=== PATIENT | female | born 2000 | race Hispanic/Latino ===

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

== ENCOUNTER 2020-02-13 07:53 | Outpatient (CLI) | payer BC ==
[2020-02-13 08:14] LABS: Hematocrit 40.3 % (30.3-42.9); Hemoglobin 13.8 gm/dl (10.1-14.3); Mean Corpuscular HGB Conc 34 % (30-34); Mean Corpuscular Volume 84 fl (79-97); Platelet Count 268 K/mm3 (140-440); Red Blood Count 4.82 M/mm3 (3.65-5.03); Red Cell Distribution Width 14.1 % (13.2-15.2)
[2020-02-13 08:49] LABS: Alanine Aminotransferase 21 units/L (7-56); Albumin 4.5 g/dL (3.9-5); Blood Urea Nitrogen 11 mg/dL (7-17); Calcium 9.5 mg/dL (8.4-10.2); Hemolysis Index 8
[2020-02-13 08:59] LABS: BUN/Creatinine Ratio 18
== END 2020-02-13 07:54 | disposition home or self-care (01) ==
LOC: LAB 07:53
PROVIDERS: ATTEND Obstetrics & Gynecology
DX: Z13.29 Encounter for screening for other suspected endocrine disorder (principal); Z13.0 Encounter for screening for diseases of the blood and blood-forming organs and certain disorders involving the immune mechanism; N91.5 Oligomenorrhea, unspecified
CPT/HCPCS: 36415; 80053; 84146; 84443; 85027

== ENCOUNTER 2020-03-15 11:14 | Outpatient (CLI) | payer BC ==
[2020-03-15 11:39] LABS: Basophils # (Auto) 0.1 K/mm3 (0.0-0.1); Basophils % (Auto) 0.8 % (0.0-1.8); Eosinophils # (Auto) 0.1 K/mm3 (0.0-0.4); Eosinophils % (Auto) 1.3 % (0.0-4.3); Hematocrit 41.9 % (30.3-42.9); Hemoglobin 14.1 gm/dl (10.1-14.3); Lymphocytes # (Auto) 2.3 K/mm3 (1.2-5.4); Lymphocytes % (Auto) 28.1 % (13.4-35.0); Mean Corpuscular HGB Conc 34 % (30-34); Mean Corpuscular Volume 84 fl (79-97); Monocytes # (Auto) 0.5 K/mm3 (0.0-0.8); Monocytes % (Auto) 5.5 % (0.0-7.3); Platelet Count 278 K/mm3 (140-440); Red Blood Count 4.99 M/mm3 (3.65-5.03); Red Cell Distribution Width 14.1 % (13.2-15.2)
[2020-03-15 12:06] LABS: Alanine Aminotransferase 17 units/L (7-56); Albumin 4.7 g/dL (3.9-5); Blood Urea Nitrogen 9 mg/dL (7-17); Calcium 9.5 mg/dL (8.4-10.2); Hemolysis Index 4
[2020-03-15 12:07] LABS: BUN/Creatinine Ratio 15
[2020-03-18 13:20] LABS: Vitamin D, 25-OH, D2 <4 ng/mL
== END 2020-03-15 11:15 | disposition home or self-care (01) ==
LOC: LAB 11:14
PROVIDERS: ATTEND Internal Medicine
DX: Z13.818 Encounter for screening for other digestive system disorders (principal); Z13.29 Encounter for screening for other suspected endocrine disorder; R68.89 Other general symptoms and signs; D51.9 Vitamin B12 deficiency anemia, unspecified; E55.9 Vitamin D deficiency, unspecified; R94.6 Abnormal results of thyroid function studies
CPT/HCPCS: 36415; 80053; 82306; 82607; 82747; 85025; 86706; 86787

== ENCOUNTER 2020-03-21 11:23 | Outpatient (CLI) | payer BC | END 2020-03-21 11:24 | disposition home or self-care (01) | LOC: LAB 11:23 | PROVIDERS: ATTEND Internal Medicine | DX: Z11.59 Encounter for screening for other viral diseases (principal) | CPT/HCPCS: 36415; 86706 ==

== ENCOUNTER 2021-04-03 11:39 | Outpatient (CLI) | payer BC ==
[2021-04-03 12:28] LABS: Alanine Aminotransferase 11 units/L (7-56); Albumin 4.4 g/dL (3.9-5); Blood Urea Nitrogen 10 mg/dL (7-17); Calcium 9.2 mg/dL (8.4-10.2); Chol/HDL Ratio 3.72 %; HDL Cholesterol 47 mg/dL (40-59); Hemolysis Index 6; LDL Cholesterol,Direct 108 mg/dL (50-130)
[2021-04-03 12:46] LABS: BUN/Creatinine Ratio 17
[2021-04-03 12:50] LABS: Basophils # (Auto) 0.1 K/mm3 (0.0-0.1); Basophils % (Auto) 0.7 % (0.0-1.8); Eosinophils # (Auto) 0.1 K/mm3 (0.0-0.4); Eosinophils % (Auto) 0.9 % (0.0-4.3); Hematocrit 41.9 % (30.3-42.9); Hemoglobin 13.5 gm/dl (10.1-14.3); Lymphocytes # (Auto) 1.9 K/mm3 (1.2-5.4); Mean Corpuscular HGB Conc 32 % (30-34); Mean Corpuscular Volume 86 fl (79-97); Monocytes # (Auto) 0.4 K/mm3 (0.0-0.8); Monocytes % (Auto) 5.4 % (0.0-7.3); Platelet Count 269 K/mm3 (140-440); Red Blood Count 4.86 M/mm3 (3.65-5.03); Red Cell Distribution Width 13.9 % (13.2-15.2)
== END 2021-04-03 11:40 | disposition home or self-care (01) ==
LOC: LAB 11:39
PROVIDERS: ATTEND Internal Medicine
DX: Z00.00 Encounter for general adult medical examination without abnormal findings (principal); Z13.220 Encounter for screening for lipoid disorders; Z13.29 Encounter for screening for other suspected endocrine disorder; Z13.1 Encounter for screening for diabetes mellitus
CPT/HCPCS: 36415; 80053; 80061; 82306; 84443; 85025

== ENCOUNTER 2021-08-21 17:41 | Emergency (ER) | payer BC ==
--- NOTE | 2021-08-21 20:50 | XRay Report ---
CHEST 2 VIEWS INDICATION / CLINICAL INFORMATION: CHEST PAIN. FINDINGS: SUPPORT DEVICES: None. HEART / MEDIASTINUM: No significant abnormality. LUNGS / PLEURA: No significant pulmonary or pleural abnormality. No pneumothorax. ADDITIONAL FINDINGS: No significant additional findings. IMPRESSION: 1. No acute findings. Signer Name: Jorge Johnson MD Signed: 08/21/2021 8:45 PM Workstation Name: [id number]
[2021-08-21] MEDS ORDERED: IBUPROFEN 800 MG TAB PO ONE (22:27)
[2021-08-21] MEDS ORDERED: ONDANSETRON 4 MG ODT TAB PO ONE (22:27)
[2021-08-21 23:00] LABS: Basophils # (Auto) 0.1 K/mm3 (0.0-0.1); Basophils % (Auto) 0.6 % (0.0-1.8); Eosinophils # (Auto) 0.1 K/mm3 (0.0-0.4); Eosinophils % (Auto) 1.3 % (0.0-4.3); Hematocrit 42.3 % (30.3-42.9); Hemoglobin 13.9 gm/dl (10.1-14.3); Lymphocytes # (Auto) 3.9 K/mm3 (1.2-5.4); Lymphocytes % (Auto) 35.4 % (13.4-35.0); Mean Corpuscular HGB Conc 33 % (30-34); Mean Corpuscular Volume 85 fl (79-97); Monocytes # (Auto) 0.8 K/mm3 (0.0-0.8); Monocytes % (Auto) 7.1 % (0.0-7.3); Platelet Count 274 K/mm3 (140-440); Red Blood Count 4.99 M/mm3 (3.65-5.03); Red Cell Distribution Width 13.9 % (13.2-15.2)
[2021-08-21 23:18] LABS: Alanine Aminotransferase 12 units/L (7-56); Blood Urea Nitrogen 9 mg/dL (7-17); Calcium 9.8 mg/dL (8.4-10.2); Hemolysis Index 3
[2021-08-21 23:34] LABS: BUN/Creatinine Ratio 13
--- NOTE | 2021-08-21 23:36 | Emergency Department Report ---
ED Chest Pain HPI - General Chief Complaint: Chest Pain Stated Complaint: CHEST/BACK PAIN /DIZZY Time Seen by Provider: 08/21/21 22:26 Source: patient Mode of arrival: Ambulatory Limitations: No Limitations - History of Present Illness Initial Comments: Patient is a 21 female who presents for substernal chest pain rating the left arm since yesterday. Pain is rated at 5/10 achy sharp. Patient denies nausea or vomiting. There is no dizziness or lightheadedness. Has been no fever or chills. Patient denies cough or shortness of breath. Last menstrual cycle 2 weeks ago. Patient states family history of coronary artery disease paternal and maternal. MD Complaint: chest pain Severity scale (0 -10): 7 - Related Data Home Medications Medication Instructions Recorded Confirmed Last Taken Acetaminophen [Tylenol] 650 mg PO Q6HR PRN 08/20/16 08/20/16 08/20/16 04:00 Previous Rx's Medication Instructions Recorded Last Taken Type Nitrofurantoin [place]/M-Cryst 100 mg PO Q12HR #10 capsule 08/20/16 Unknown Rx [Macrobid CAP] bisacodyL [Dulcolax] 5 mg PO DAILY PRN #30 tab 08/20/16 Unknown Rx traMADoL [Ultram] 50 mg PO Q6HR PRN #20 tablet 08/20/16 Unknown Rx Ibuprofen [Motrin 800 MG tab] 800 mg PO Q8HR PRN #30 tablet 08/22/21 Unknown Rx cephALEXin [Keflex] 500 mg PO BID 7 Days #14 cap 08/22/21 Unknown Rx Allergies Allergy/AdvReac Type Severity Reaction Status Date / Time No Known Allergies Allergy Verified 08/20/16 05:28 Heart Score - HEART Score History: Slightly suspicious EKG: Normal Age: < 45 Risk factors: No known risk factors Troponin: < normal limit HEART Score: 0 - EKG Read Time Time EKG Completed: 17:51 EKG Read Time: 17:51 ED Review of Systems ROS: Stated complaint: CHEST/BACK PAIN /DIZZY Other details as noted in HPI Constitutional: denies: chills, fever Eyes: denies: eye pain, eye discharge, vision change ENT: denies: ear pain, throat pain Respiratory: denies: cough, shortness of breath, wheezing Cardiovascular: chest pain. denies: palpitations, paroxysmal nocturnal dyspnea Endocrine: no symptoms reported Gastrointestinal: denies: abdominal pain, nausea, vomiting, diarrhea Genitourinary: denies: urgency, dysuria, discharge Musculoskeletal: denies: back pain, joint swelling, arthralgia Skin: denies: rash, lesions Neurological: denies: headache, weakness, numbness, paresthesias, confusion, vertigo Psychiatric: denies: anxiety, depression Hematological/Lymphatic: denies: easy bleeding, easy bruising ED Past Medical Hx - Past Medical History Previous Medical History?: Yes Additional medical history: constipation - Surgical History Additional Surgical History: TONSILECTOMY - Social History Smoking Status: Never Smoker Substance Use Type: None - Medications Home Medications: Home Medications Medication Instructions Recorded Confirmed Last Taken Type Acetaminophen [Tylenol] 650 mg PO Q6HR PRN 08/20/16 08/20/16 08/20/16 04:00 History Nitrofurantoin [place]/M-Cryst 100 mg PO Q12HR #10 capsule 08/20/16 Unknown Rx [Macrobid CAP] bisacodyL [Dulcolax] 5 mg PO DAILY PRN #30 tab 08/20/16 Unknown Rx traMADoL [Ultram] 50 mg PO Q6HR PRN #20 tablet 08/20/16 Unknown Rx Ibuprofen [Motrin 800 MG tab] 800 mg PO Q8HR PRN #30 tablet 08/22/21 Unknown Rx cephALEXin [Keflex] 500 mg PO BID 7 Days #14 cap 08/22/21 Unknown Rx ED Physical Exam - General Limitations: No Limitations General appearance: alert, in no apparent distress - Head Head exam: Present: normocephalic, normal inspection - Eye Eye exam: Present: normal appearance, PERRL, EOMI Pupils: Present: normal accommodation - ENT ENT exam: Present: mucous membranes moist - Neck Neck exam: Present: normal inspection, full ROM. Absent: tenderness, lymphadenopathy - Respiratory Respiratory exam: Present: normal lung sounds bilaterally. Absent: respiratory distress, wheezes, rales, rhonchi, stridor, chest wall tenderness, prolonged expiratory - Cardiovascular Cardiovascular Exam: Present: regular rate, normal rhythm, normal heart sounds. Absent: systolic murmur, diastolic murmur, rubs, gallop - GI/Abdominal GI/Abdominal exam: Present: soft, normal bowel sounds. Absent: distended, tenderness, bruit, hernia - Rectal Rectal exam: Present: deferred - Extremities Exam Extremities exam: Present: normal inspection, full ROM, normal capillary refill. Absent: tenderness, pedal edema - Back Exam Back exam: Present: normal inspection, full ROM. Absent: CVA tenderness (R), CVA tenderness (L) - Neurological Exam Neurological exam: Present: alert, oriented X3, CN II-XII intact, normal gait - Expanded Neurological Exam Expanded Patient oriented to: Present: person, place, time Speech: Present: fluid speech Motor strength exam: RUE: 5, LUE: 5, RLE: 5, LLE: 5 Best Eye Response (Upatoi): (4) open spontaneously Best Motor Response ([place]oi): (6) obeys commands Best Verbal Response ([place]oi): (5) oriented Hang Total: 15 - Psychiatric Psychiatric exam: Present: normal affect, normal mood - Skin Skin exam: Present: warm, dry, intact, normal color. Absent: rash ED Course Vital Signs 08/21/21 17:59 Temperature 98.0 F Pulse Rate 92 H Respiratory 18 Rate Blood Pressure 123/65 [Right] O2 Sat by Pulse 99 Oximetry SEVERIANO score - Severiano Score Age > 65: (0) No Aspirin use within the Past 7 Days: (0) No 3 or more CAD Risk Factors: (0) No 2 or more Angina events in past 24 hrs: (0) No Known CAD with more than 50% Stenosis: (0) No Elevated Cardiac Markers: (0) No ST Deviation Greater than 0.5mm: (0) No SEVERIANO Score: 0 ED Medical Decision Making - Lab Data Result diagrams: 08/21/21 22:37 08/21/21 22:37 Labs 08/21/21 08/21/21 08/21/21 22:37 22:37 22:37 WBC 11.0 RBC 4.99 Hgb 13.9 Hct 42.3 MCV 85 MCH 28 MCHC 33 RDW 13.9 Plt Count 274 Lymph % (Auto) 35.4 H [place] % (Auto) 7.1 Eos % (Auto) 1.3 Baso % (Auto) 0.6 Lymph # (Auto) 3.9 [place] # (Auto) 0.8 Eos # (Auto) 0.1 Baso # (Auto) 0.1 Seg Neutrophils % 55.6 Seg Neutrophils # 6.1 Sodium 138 Potassium 3.7 Chloride 100.2 Carbon Dioxide 25 Anion Gap 17 BUN 9 Creatinine 0.7 Estimated GFR > 60 BUN/Creatinine Ratio 13 Glucose 93 Calcium 9.8 Total Bilirubin 0.50 AST 14 ALT 12 Alkaline Phosphatase 73 Troponin T < 0.010 Total Protein 7.1 Albumin 5.0 Albumin/Globulin Ratio 2.4 Lipase 29 Urine Bilirubin Urine RBC (Auto) U Epithel Cells (Auto) 08/21/21 Unknown WBC RBC Hgb Hct MCV MCH MCHC RDW Plt Count Lymph % (Auto) [place] % (Auto) Eos % (Auto) Baso % (Auto) Lymph # (Auto) [place] # (Auto) Eos # (Auto) Baso # (Auto) Seg Neutrophils % Seg Neutrophils # Sodium Potassium Chloride Carbon Dioxide Anion Gap BUN Creatinine Estimated GFR BUN/Creatinine Ratio Glucose Calcium Total Bilirubin AST ALT Alkaline Phosphatase Troponin T Total Protein Albumin Albumin/Globulin Ratio Lipase Urine Bilirubin Neg Urine RBC (Auto) 5.0 U Epithel Cells (Auto) 24.0 H Labs 08/21/21 08/21/21 08/21/21 22:37 22:37 22:37 WBC 11.0 RBC 4.99 Hgb 13.9 Hct 42.3 MCV 85 MCH 28 MCHC 33 RDW 13.9 Plt Count 274 Lymph % (Auto) 35.4 H [place] % (Auto) 7.1 Eos % (Auto) 1.3 Baso % (Auto) 0.6 Lymph # (Auto) 3.9 [place] # (Auto) 0.8 Eos # (Auto) 0.1 Baso # (Auto) 0.1 Seg Neutrophils % 55.6 Seg Neutrophils # 6.1 Sodium 138 Potassium 3.7 Chloride 100.2 Carbon Dioxide 25 Anion Gap 17 BUN 9 Creatinine 0.7 Estimated GFR > 60 BUN/Creatinine Ratio 13 Glucose 93 Calcium 9.8 Total Bilirubin 0.50 AST 14 ALT 12 Alkaline Phosphatase 73 Troponin T < 0.010 Total Protein 7.1 Albumin 5.0 Albumin/Globulin Ratio 2.4 Lipase 29 Urine Color Urine Turbidity Urine pH Ur Specific [place] Urine Protein Urine Glucose (UA) Urine Ketones Urine Blood Urine Nitrite Urine Bilirubin Urine Urobilinogen Ur Leukocyte Esterase Urine WBC (Auto) Urine RBC (Auto) U Epithel Cells (Auto) Urine Bacteria (Auto) Urine Mucus Urine Yeast (Budding) Urine HCG, Qual 08/21/21 Unknown WBC RBC Hgb Hct MCV MCH MCHC RDW Plt Count Lymph % (Auto) [place] % (Auto) Eos % (Auto) Baso % (Auto) Lymph # (Auto) [place] # (Auto) Eos # (Auto) Baso # (Auto) Seg Neutrophils % Seg Neutrophils # Sodium Potassium Chloride Carbon Dioxide Anion Gap BUN Creatinine Estimated GFR BUN/Creatinine Ratio Glucose Calcium Total Bilirubin AST ALT Alkaline Phosphatase Troponin T Total Protein Albumin Albumin/Globulin Ratio Lipase Urine Color Yellow Urine Turbidity Slightly-cloudy Urine pH 6.0 Ur Specific [place] 1.019 Urine Protein <15 mg/dl Urine Glucose (UA) Neg Urine Ketones 20 Urine Blood Sm Urine Nitrite Neg Urine Bilirubin Neg Urine Urobilinogen < 2.0 Ur Leukocyte Esterase Lg Urine WBC (Auto) 29.0 H Urine RBC (Auto) 5.0 U Epithel Cells (Auto) 24.0 H Urine Bacteria (Auto) 1+ Urine Mucus Few Urine Yeast (Budding) Few Urine HCG, Qual Negative - EKG Data EKG shows normal: sinus rhythm, axis, intervals, QRS complexes, ST-T waves Rate: normal - EKG Data Interpretation: normal EKG (Normal sinus rhythm no ST elevated CT interpreted via ED attending.) - Radiology Data Radiology results: report reviewed, image reviewed CHEST 2 VIEWS INDICATION / CLINICAL INFORMATION: CHEST PAIN. FINDINGS: SUPPORT DEVICES: None. HEART / MEDIASTINUM: No significant abnormality. LUNGS / PLEURA: No significant pulmonary or pleural abnormality. No pneumothorax. ADDITIONAL FINDINGS: No significant additional findings. IMPRESSION: 1. No acute findings. Signer Name: Jorge Johnson MD Signed: 08/21/2021 8:45 PM Workstation Name: [id number] Transcribed By: Dictated By: Jorge Johnson MD Electronically Authenticated By: Jorge Johnson MD Signed Date/Time: 08/21/212044 DD/ 44 TD/TT: - Medical Decision Making EKG normal sinus rhythm no ST elevated CT, chest x-ray is normal infiltration opacities. There is no fevers no chills no cough no dizziness or lightheadedness. CBC normal CMP normal UA noted for leukocytes and bacteria. Plan treat for UTI. Continue to hydrate as directed. Follow-up with your doctor in 2 to 3 days. Return to emergency department for symptoms worsen. Patient verbalized agreement understanding with discharge plan. Patient DC'd home in stable condition at this time. Critical care attestation.: If time is entered above; I have spent that time in minutes in the direct care of this critically ill patient, excluding procedure time. ED Disposition Clinical Impression: UTI (urinary tract infection) Qualifiers: Urinary tract infection type: acute cystitis Hematuria presence: without hematuria Qualified Code(s): N30.00 - Acute cystitis without hematuria Chest pain Qualifiers: Chest pain type: unspecified Qualified Code(s): R07.9 - Chest pain, unspecified Disposition: HOME / SELF CARE / HOMELESS Is pt being admited?: No Does the pt Need Aspirin: No Condition: Stable Instructions: Nonspecific Chest Pain, Adult, Urinary Tract Infection, Adult Additional Instructions: Take medications as prescribed, follow-up with your doctor in 2 to 3 days. Return to emergency department for symptoms worsen. Prescriptions: cephALEXin [Keflex] 500 mg PO BID 7 Days #14 cap Ibuprofen [Motrin 800 MG tab] 800 mg PO Q8HR PRN #30 tablet PRN Reason: Pain Referrals: KRISTOPHER JORGE MD [Staff Physician] - 3-5 Days URIEL COLLIER MD [Staff Physician] - 3-5 Days Forms: Work/School Release Form(ED) Time of Disposition: 00:30
[2021-08-21 23:59] LABS: Bacteria,Urine 1+ /HPF (Negative); Bilirubin,Urine NEG (Negative); Blood,Urine SM (Negative); Color,Urine Yellow (Yellow); Mucus,Urine FEW /HPF; Protein,Urine <15 mg/dL mg/dL (Negative); Urobilinogen,Urine < 2.0 mg/dL (<2.0)
[2021-08-22 00:11] LABS: HCG Qualitative,Urine Negative (Negative)
[2021-08-22] MEDS ORDERED: cephALEXin 500 MG CAP PO ONE (00:29)
[2021-08-22 00:52] VITALS: BP 127/69
--- NOTE | 2021-08-22 10:17 | Electrocardiograph Report ---
[facility] Test Date: 2021-08-21 Test Time: 17:51:29 Pat Name: SUZAN NICHOLSON Department: Room: Gender: F [employer] Installer: TALAT : 2000 Requested By: ALEJANDRO NATARAJAN Order Number: [id number] Reading MD: Christian Gore Measurements Intervals [place] Rate: 82 P: 56 [place]: 150 QRS: 49 QRSD: 81 T: 35 QT: 365 QTc: 427 Interpretive Statements Sinus rhythm nonspecific st-t No previous ECG available for comparison Electronically Signed On 08-22-2021 10:16:41 EDT by Christian Gore
== END 2021-08-22 00:53 | disposition home or self-care (01) ==
LOC: ED 17:41
DX: N39.0 Urinary tract infection, site not specified (principal); R07.2 Precordial pain; Z90.89 Acquired absence of other organs; Z79.899 Other long term (current) drug therapy
CPT/HCPCS: 36415; 71046; 80053; 81001; 81025; 83690; 84484; 85025; 87086; 93005; 99284; J3490; Q0162

== ENCOUNTER 2021-10-02 11:08 | Outpatient (CLI) | payer BC ==
[2021-10-02 11:56] LABS: Color,Urine Yellow (Yellow)
[2021-10-02 11:58] LABS: Bilirubin,Urine Negative (Negative)
[2021-10-02 11:59] LABS: Blood,Urine 2+ (Negative)
[2021-10-02 12:00] LABS: Protein,Urine >2000 mg dL mg/dL (Negative)
[2021-10-02 12:15] LABS: Bacteria,Urine 1+ /HPF (Negative); Renal Epithelial Cells,Urine 1 /LPF
[2021-10-02 12:16] LABS: Mucus,Urine 1+ /HPF
== END 2021-10-02 11:09 | disposition home or self-care (01) ==
LOC: LAB 11:08
PROVIDERS: ATTEND Internal Medicine
DX: N39.0 Urinary tract infection, site not specified (principal)
CPT/HCPCS: 81001; 87086

== ENCOUNTER 2021-10-28 07:54 | Outpatient (CLI) | payer BC ==
[2021-10-28 08:29] LABS: Hematocrit 44.5 % (30.3-42.9); Hemoglobin 14.8 gm/dl (10.1-14.3); Mean Corpuscular HGB Conc 33 % (30-34); Mean Corpuscular Volume 84 fl (79-97); Platelet Count 268 K/mm3 (140-440); Red Blood Count 5.27 M/mm3 (3.65-5.03); Red Cell Distribution Width 13.5 % (13.2-15.2)
[2021-10-28 08:32] LABS: Bilirubin,Urine NEG (Negative); Blood,Urine SM (Negative); Color,Urine Yellow (Yellow); Protein,Urine <15 mg/dL mg/dL (Negative); Urobilinogen,Urine < 2.0 mg/dL (<2.0)
[2021-10-28 08:49] LABS: Bacteria,Urine 2+ /HPF (Negative); Mucus,Urine FEW /HPF
[2021-10-28 08:50] LABS: Blood Urea Nitrogen 12 mg/dL (7-17); Calcium 9.7 mg/dL (8.4-10.2); Hemolysis Index 3
[2021-10-28 08:51] LABS: BUN/Creatinine Ratio 17
--- NOTE | 2021-10-28 11:12 | Ultrasound Report ---
ULTRASOUND RENAL INDICATION / CLINICAL INFORMATION: N18.1 CHRONIC KIDNEY DISEASE, STAGE 1 R80.8. COMPARISON: None available. FINDINGS: RIGHT KIDNEY: Length = 9.5 cm. - Echogenicity: Normal. - Parenchymal Thickness: Normal. - Hydronephrosis: Mild pelviectasis. - Cyst / Mass: None. - Stones: None seen. LEFT KIDNEY: Length = 9.0 cm. - Echogenicity: Normal. - Parenchymal Thickness: Normal. - Hydronephrosis: Mild pelviectasis. - Cyst / Mass: None. - Stones: None seen. URINARY BLADDER: No significant abnormality. FREE FLUID: None. ADDITIONAL FINDINGS: None. IMPRESSION: 1. No acute abnormality. 2. Mild pelviectasis is visualized bilaterally. An obstructing source is not identified sonographical ly. Scribed by: Silvia Barbosa RDMS, RVT, JULIET Scribed: 10/28/2021 9:57 AM I have reviewed the images, agree with this report, and edited this report as needed. Signer Name: Baljeet Hays MD Signed: 10/28/2021 11:07 AM Workstation Name: [id number]
[2021-10-28 14:56] LABS: Creatinine,Urine 77.8 mg/dL (0.1-20.0); Protein/Creatinine Ratio,Urine 0.08
[2021-10-30 16:48] LABS: ANA Screen, IFA Positive (Negative)
== END 2021-10-28 07:55 | disposition home or self-care (01) ==
LOC: US 07:54
PROVIDERS: ATTEND Internal Medicine Nephrology
DX: N13.30 Unspecified hydronephrosis (principal); N18.1 Chronic kidney disease, stage 1; R80.8 Other proteinuria
CPT/HCPCS: 36415; 76770; 80048; 81001; 82570; 84156; 85027; 86038; 86706; 86803; 87086; 87517

== ENCOUNTER 2021-11-20 07:33 | Outpatient (CLI) | payer BC ==
--- NOTE | 2021-11-20 08:45 | Ultrasound Report ---
ULTRASOUND BREAST LEFT LIMITED, 11/20/2021 CLINICAL INFORMATION / INDICATION: Focal pain around the nipple. TECHNIQUE: Targeted ultrasound evaluation was performed of the area of interest. COMPARISON: None. FINDINGS: Ultrasound imaging of the left breast around the nipple demonstrates normal fibroglandular echotextur e without evidence of mass, focal fluid collection or adenopathy. IMPRESSION: No sonographic evidence of malignancy. No ultrasound findings to explain pain. Follow up recommendation: Unless otherwise clinically indicated, recommend patient return to routine yearly screening mammography at age 40. BI-RADS Category 1: NEGATIVE. A normal or "negative" report should not preclude biopsy or follow-up of a clinically suspicious find ing. Signer Name: Salo Witt DO Signed: 11/20/2021 8:40 AM Workstation Name: [id number]
--- NOTE | 2021-11-20 09:50 | Cat Scan Report ---
CT ABDOMEN AND PELVIS WITHOUT CONTRAST INDICATION / CLINICAL INFORMATION: N28.89 R31.29 STONE PROTOCOL. TECHNIQUE: Axial CT images were obtained through the abdomen and pelvis without IV contrast. All CT scans at this location are performed using CT dose reduction for ALARA by means of automated exposure control. COMPARISON: Renal ultrasound dated 10/28/2021 FINDINGS: LOWER CHEST: No significant abnormality. LIVER: No significant abnormality. There is small calcification in the left lobe. GALLBLADDER: No significant abnormality. BILE DUCTS: No significant abnormality. PANCREAS: No significant abnormality. SPLEEN: Calcified granulomata are noted. ADRENALS: No significant abnormality. RIGHT KIDNEY / URETER: No significant abnormality. There is no hydronephrosis. LEFT KIDNEY / URETER: No significant abnormality. There is no hydronephrosis. STOMACH / SMALL BOWEL: No significant abnormality. COLON: No significant abnormality. APPENDIX: No significant abnormality. PERITONEUM: No free fluid. No free air. No fluid collection. LYMPH NODES: No significant adenopathy. AORTA / ARTERIES: No significant abnormality. IVC / VEINS: No significant abnormality. URINARY BLADDER: No significant abnormality. REPRODUCTIVE ORGANS: No significant abnormality. ADDITIONAL FINDINGS: None. SKELETAL SYSTEM: No significant abnormality. IMPRESSION: 1. No acute abnormality. There is no obstruction, inflammation, or free air. No renal or ureteral jorgito culi are seen. There is no hydronephrosis. The appendix is unremarkable. Signer Name: Colin Garcia MD Signed: 11/20/2021 9:45 AM Workstation Name: [email or web address]
== END 2021-11-20 07:34 | disposition home or self-care (01) ==
LOC: CT 07:33
PROVIDERS: ATTEND Internal Medicine Nephrology
DX: N28.89 Other specified disorders of kidney and ureter (principal); R31.29 Other microscopic hematuria; N64.4 Mastodynia
CPT/HCPCS: 74176

== ENCOUNTER 2022-01-06 11:19 | Outpatient (CLI) | payer BC ==
[2022-01-06 12:27] LABS: Basophils # (Auto) 0.1 K/mm3 (0.0-0.1); Basophils % (Auto) 0.6 % (0.0-1.8); Eosinophils # (Auto) 0.1 K/mm3 (0.0-0.4); Eosinophils % (Auto) 0.8 % (0.0-4.3); Hematocrit 43.5 % (30.3-42.9); Hemoglobin 14.3 gm/dl (10.1-14.3); Lymphocytes # (Auto) 2.6 K/mm3 (1.2-5.4); Lymphocytes % (Auto) 28.2 % (13.4-35.0); Mean Corpuscular HGB Conc 33 % (30-34); Mean Corpuscular Volume 85 fl (79-97); Monocytes # (Auto) 0.4 K/mm3 (0.0-0.8); Monocytes % (Auto) 4.7 % (0.0-7.3); Platelet Count 302 K/mm3 (140-440); Red Blood Count 5.13 M/mm3 (3.65-5.03)
[2022-01-06 12:30] LABS: Blood Urea Nitrogen 10 mg/dL (7-17); Calcium 10.5 mg/dL (8.4-10.2); Hemolysis Index 3
[2022-01-06 12:42] LABS: BUN/Creatinine Ratio 17
[2022-01-06 12:42] LABS: Creatinine,Urine 29.2 mg/dL (0.1-20.0)
[2022-01-06 12:43] LABS: Protein/Creatinine Ratio,Urine 0.14
[2022-01-06 13:13] LABS: Mucus,Urine FEW /HPF
[2022-01-06 13:20] LABS: Color,Urine Straw (Yellow)
== END 2022-01-06 11:20 | disposition home or self-care (01) ==
LOC: LAB 11:19
PROVIDERS: ATTEND Internal Medicine Nephrology
DX: N18.1 Chronic kidney disease, stage 1 (principal); R80.8 Other proteinuria
CPT/HCPCS: 36415; 80048; 81001; 82570; 84156; 85025